=== PATIENT | male | born 1970 | race African-American/Black ===

== ENCOUNTER 2020-12-15 10:24 | Emergency (ER) | payer SELFPAY ==
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
--- NOTE | 2020-12-15 11:43 | ER ---
Nurse's Notes [facility] Name: Cameron Barrett Age: 50 yrs Sex: Male : 1970 Arrival Date: 12/15/2020 Time: 10:31 Bed 25 Private MD: Diagnosis: Low back pain;Muscle spasm of back Presentation: 12/15 10:31 Chief complaint: Patient states: left low back pain since Tuesday. Coronavirus screen: sv Client denies travel out of the [place] in the last 14 days. At this time, the client does not indicate any symptoms associated with coronavirus-19. Ebola Screen: No symptoms or risks identified at this time. Risk Assessment: Do you want to hurt yourself or someone else? Patient reports no desire to harm self or others. Onset of symptoms was December 13, 2020. 10:31 Method Of Arrival: Wheelchair sv 10:31 Acuity: ASIA 4 sv 10:32 Initial Sepsis Screen: Does the patient meet any 2 criteria? No. Patient's initial sv sepsis screen is negative. Does the patient have a suspected source of infection? No. Patient's initial sepsis screen is negative. Historical: - Allergies: 10:32 No Known Allergies; sv - PMHx: 10:32 None; sv - PSHx: 10:32 None; sv - Immunization history:: Adult Immunizations up to date. - Social history:: Smoking status: Patient reports the use of cigarette tobacco products, smokes one-half pack cigarettes per day. - Family history:: not pertinent. - Hospitalizations: : No recent hospitalization is reported. Screenin:30 Abuse screen: Denies threats or abuse. Denies injuries from another. Nutritional ss screening: No deficits noted. Tuberculosis screening: Never had TB. Fall Risk None identified. Assessment: 11:30 General: Appears uncomfortable, Behavior is calm, cooperative, Denies fever, feeling ss ill, fatigue, chills. Pain: Complains of pain in lumbar area and left low back Pain currently is 8 out of 10 on a pain scale. Quality of pain is described as aching, pinching, Pain began 2-3 days ago. Is continuous. Neuro: Level of Consciousness is awake, alert, obeys commands, Oriented to person, place, time, situation, Speech is normal. Cardiovascular: Capillary refill < 3 seconds is brisk in bilateral fingers Patient's skin is warm and dry. Pulses are palpable in right radial artery, right posterior tibial artery, left radial artery and left posterior tibial artery. Respiratory: Airway is patent Respiratory effort is even, unlabored, Respiratory pattern is regular, symmetrical. GI: Patient currently denies abdominal pain, diarrhea, nausea, vomiting. : No signs and/or symptoms were reported regarding the genitourinary system. EENT: Oral mucosa is moist. Throat is clear. Derm: Skin is intact, is healthy with good turgor, Skin is dry, Skin is pink, warm \T\ dry. normal. Musculoskeletal: Circulation, motion, and sensation intact. Range of motion: intact in all extremities, Swelling absent. 12:18 Reassessment: Patient appears in no apparent distress at this time. Patient and/or ss family updated on plan of care and expected duration. Pain level reassessed. Patient is alert, oriented x 3, equal unlabored respirations, skin warm/dry/pink. Pt reports that pain has decreased significantly. Pt came out of exam room dancing and laughing with ED staff. Patient states feeling better. Patient states symptoms have improved. Vital Signs: 10:32 BP 143 / 66; Pulse 67; Resp 20; Temp 98.9; Pulse Ox 100% ; Weight 88.45 kg; Height 6 sv ft. 0 in. (182.88 cm); Pain 8/10; 10:32 Body Mass Index 26.45 (88.45 kg, 182.88 cm) sv ED Course: 10:31 Patient arrived in ED. sv 10:31 Triage completed. sv 10:32 Arm band placed on. sv 11:24 Daniel Reilly MD is Attending Physician. rn 11:30 Fay Carey RN is Primary Nurse. ss 11:30 Patient has correct armband on for positive identification. Bed in low position. Call ss light in reach. 12:17 No provider procedures requiring assistance completed. Patient did not have IV access ss during this emergency room visit. Administered Medications: 11:48 Drug: Decadron 10 mg Route: IM; Site: right deltoid; ss 12:16 Follow up: Response: No adverse reaction; Marked relief of symptoms; Pain is decreased ss 11:48 Drug: TORadol 30 mg Route: IM; Site: left deltoid; ss 12:16 Follow up: Response: No adverse reaction; Marked relief of symptoms; Pain is decreased ss Outcome: 11:42 Discharge ordered by . rn 12:17 Discharged to home ambulatory. ss 12:17 Condition: good 12:17 Discharge instructions given to patient, Instructed on discharge instructions, follow up and referral plans. medication usage, Demonstrated understanding of instructions, follow-up care, medications, Prescriptions given X 3. 12:19 Patient left the ED. ss Signatures: Nettie Rosado RN RN Daniel Reilly MD MD rn Smirch, Shelby, RN RN
[2020-12-15] MEDS ORDERED: KETOROLAC 30 MG/ML INJ ONE (11:59)
[2020-12-15] MEDS ORDERED: dexAMETHasone 10 MG/ML VIAL ONE (11:59)
[2020-12-15 12:42] VITALS: BP 143/66; TEMP 98.9; O2SAT 100
== END 2020-12-15 12:19 | disposition home or self-care (01) ==
LOC: ER 10:24
DX: M54.5 Low back pain (principal); M62.830 Muscle spasm of back; F17.210 Nicotine dependence, cigarettes, uncomplicated
CPT/HCPCS: 96372; 99283; J1100